=== PATIENT | male | born 1980 | race Two or more races ===

== ENCOUNTER 2020-05-15 16:32 | Emergency (ER) | payer OTHER, SELFPAY ==
[~2020-05-15] VITALS: Ht 172.7 cm; Wt 71.4 kg
[2020-05-15 16:40] VITALS: BP 133/90
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
[2020-05-15] MEDS ORDERED: SODIUM CHLORIDE 0.9% 1,000ML IVBOLUS ONE (17:00)
[2020-05-15] MEDS ORDERED: SODIUM CHLORIDE FLUSH 10ML SYR IVF ONE (17:00)
--- NOTE | 2020-05-15 17:03 | NUR ---
[facility] AT BEDSIDE OBTAINING LEGAL BLOOD DRAW AND LABS ORDERED BY PROVIDER.
--- NOTE | 2020-05-15 17:04 | NUR ---
[employer] OFFICER RECEIVING LEGAL BLOOD DRAW
[2020-05-15 17:16] LABS: BASOPHILS % (AUTO) 1 % (0-1); EOSINOPHILS % (AUTO) 1 % (1-7); LYMPHOCYTES % (AUTO) 32 % (22-44); MEAN CORPUSCULAR HEMOGLOBIN 30.5 pg (27.5-34.5); MEAN PLATELET VOLUME 7.2 fL (7.4-10.4); MONOCYTES % (AUTO) 5 % (2-9); NEUTROPHILS % (AUTO) 62 % (42-75); PLATELET COUNT 333 x10^3/uL (130-400); RED BLOOD COUNT 5.38 x10^6/uL (4.38-5.82); RED CELL DISTRIBUTION WIDTH 13.2 % (9.4-14.8)
[2020-05-15 17:25] LABS: ALBUMIN 3.6 g/dL (3.4-5.0); ANION GAP 9 mmol/L (5-15); CALCIUM 8.5 mg/dL (8.5-10.1); CHLORIDE 104 mmol/L (98-107); MD NO
--- NOTE | 2020-05-15 18:12 | NUR ---
PT WANTS TO LEAVE. DOES NOT WANT TO STAY ANY LONGER. PT ABLE TO WALK WITHOUT ASSISTANCE STEADY GAIT TO DISCHARGE WINDOW. PT GIVEN TAXI VOUCHER TO HIS HOME. PT LEFT WITHOUT DISCHARGE GIVEN
== END 2020-05-15 18:19 | disposition home or self-care (01) ==
LOC: ED 18:10
DX: F10.229 Alcohol dependence with intoxication, unspecified (principal); F17.210 Nicotine dependence, cigarettes, uncomplicated; Y90.0 Blood alcohol level of less than 20 mg/100 ml
CPT/HCPCS: 36415; 80048; 80307; 82040; 85025; 96360; 99283; 99406; J7030